=== PATIENT | male | born 1965 | race African-American/Black ===

== ENCOUNTER 2020-12-19 11:56 | Emergency (ER) | payer BC ==
[2020-12-19 12:05] VITALS: BMI 29.7
[2020-12-19] MEDS ORDERED: CASIRIVIMAB (REGN10933) 1,200 MG, IMDEVIMAB (REGN10987) 1,200 MG in SODIUM CHLORIDE 250 ML IVPB ONE (12:50)
[2020-12-19] MEDS ORDERED: CASIRIVIMAB (REGN10933) 600 MG, IMDEVIMAB (REGN10987) 600 MG in SODIUM CHLORIDE 100 ML IVPB ONE (13:08)
[2020-12-19 13:09] LABS: HEMATOCRIT 39.8 % (35.4-49); HEMOGLOBIN 13.7 GM/dL (11.7-16.9); MCH 27.1 pg (25.7-33.7); MCHC 34.5 g/dl (32.0-35.9); MEAN CELL VOLUME 78.7 fl (80-96); MEAN PLT VOLUME 7.8 fl (7.5-11.1); PLATELET COUNT 202 10^3/uL (134-434); RBC 5.07 M/mm3 (4.00-5.60); RDW 14.2 % (11.9-15.9)
[2020-12-19 13:28] LABS: ALBUMIN 3.7 g/dl (3.4-5.0); BLOOD UREA NITROGEN 14.7 mg/dL (7-18); CALCIUM 8.3 mg/dL (8.5-10.1)
[2020-12-19 13:33] LABS: BILIRUBIN,TOTAL 0.6 mg/dL (0.2-1); TOT PROT 7.8 g/dl (6.4-8.2)
[2020-12-19 15:50] VITALS: BP 141/78; PULSE 89; TEMP 98.3
== END 2020-12-19 16:31 | disposition home or self-care (01) ==
LOC: JER 11:56
DX: U07.1 COVID-19 (principal)
CPT/HCPCS: 36415; 80053; 85027; 99284-25; M0243; Q0243

== ENCOUNTER 2023-09-18 03:47 | Day surgery (SDC) | payer BC ==
[2023-09-11 14:10] VITALS: BMI 27.8
[2023-09-18] MEDS ORDERED: LIDOCAINE HCL 1%, 10 MG/ML (20ML VIAL) ONE (10:51)
[2023-09-18] MEDS ORDERED: MIDAZOLAM HCL 2 MG/2 ML SINGLE DOSE VIAL ONE (10:53)
[2023-09-18] MEDS ORDERED: FENTANYL CITRATE/PF 50 MCG/ML VIAL ONE (10:53)
[2023-09-18] MEDS: ceFAZolin SODIUM 1 GM VIAL IVPB ONE (11:15)
[2023-09-18] MEDS: LIDOCAINE HCL 1%, 10 MG/ML (50 mL VIAL) INF ONE ×2 (11:28)
[2023-09-18] MEDS ORDERED: ONDANSETRON 4 MG/2 ML VIAL IVPUSH PRN (12:30)
[2023-09-18] MEDS ORDERED: LACTATED RINGERS SOLUTION 1,000 ML IV SCH (12:30)
[2023-09-18] MEDS ORDERED: oxyCODONE HCL 5 MG TABLET PO PRN (12:30)
[2023-09-18] MEDS: BACITRACIN ZINC 15 GM TUBE TOPICAL OINTMENT TP ONE (12:35)
[2023-09-18 14:03] VITALS: BP 112/60; RESP 18
[2023-09-18 14:06] VITALS: PULSE 78; TEMP 97.2
== END 2023-09-18 14:20 | disposition home or self-care (01) ==
LOC: JASU-SURG 03:47
PROVIDERS: ATTEND Surgery
PROC: 0HB4XZZ Excision of Neck Skin, External Approach (ICD-10-PCS; principal; 2023-09-18 10:00)
DX: L72.0 Epidermal cyst (principal); L91.8 Other hypertrophic disorders of the skin
CPT/HCPCS: 88304-TC; 88305-TC